=== PATIENT | male | born 1980 | race Hispanic/Latino ===

== ENCOUNTER 2020-04-02 13:41 | Emergency (ER) | payer OTHER ==
[2020-04-03 16:08] LABS: SARS-CoV-2 MS2 Positive; SARS-CoV-2 N Gene Positive; SARS-CoV-2 S Gene Positive; SARS-CoV-2 orf1ab Positive
== END 2020-04-02 15:00 | disposition home or self-care (01) ==
LOC: ERS 13:41
DX: U07.1 COVID-19 (principal)
CPT/HCPCS: 87635; 99283; U0003